=== PATIENT | female | born 1990 | race African-American/Black ===

== ENCOUNTER 2017-05-24 11:35 | Emergency (ER) | payer BC, MEDICAID ==
[2017-05-24 11:56] VITALS: BP 122/72
[2017-05-24] MEDS ORDERED: Acetaminophen TAB* 325 MG PO ONE (12:19)
[2017-05-24] MEDS ORDERED: Tetan/Diph/Pertus SYR(Tdap)* 0.5 ML SYR(BOOSTRIX) use SYR IM ONE (12:26)
--- NOTE | 2017-05-24 12:26 | UC ---
Laceration HPI - HPI Summary HPI Summary: This is an otherwise healthy 26 yo female who presented after sustaining a laceration to her R index finger ~ 45 min ago. She is unsure of her last tetanus. Reports moderate pain. No assoc numbness or tingling. - History Of Current Complaint Chief Complaint: UCLaceration Stated Complaint: RIGHT INDEX FINGER LACERATION - Allergies/Home Medications Allergies/Adverse Reactions: Allergies Allergy/AdvReac Type Severity Reaction Status Date / Time dairy Allergy Nausea And Uncoded 05/24/17 11:56 Vomiting Home Medications: Home Medications Omeprazole CAP* [Prilosec CAP* 20 MG] 20 mg PO DAILY 05/24/17 [History Confirmed 05/24/17] PMH/Surg Hx/FS Hx/Imm Hx Previously Healthy: Yes - Surgical History Surgical History: Yes Surgery Procedure, Year, and Place: nasal 2006 - Family History Known Family History: Positive: None - Social History Alcohol Use: Rare Substance Use Type: None Smoking Status (MU): Former Smoker Type: Cigarettes Amount Used/How Often: smoked a few cigarettes 2X/week Length of Time of Smoking/Using Tobacco: 2+ years - Immunization History Most Recent Tetanus Shot: unknown Review of Systems Constitutional: Negative Skin: Other - laceration Eyes: Negative ENT: Negative Respiratory: Negative Cardiovascular: Negative Gastrointestinal: Negative Genitourinary: Negative Motor: Negative Neurovascular: Negative Musculoskeletal: Negative Neurological: Negative Psychological: Negative All Other Systems Reviewed And Are Negative: Yes Physical Exam Triage Information Reviewed: Yes Appearance: Well-Appearing Vital Signs: Initial Vital Signs Temp 98.2 F 05/24/17 11:49 Pulse 67 05/24/17 11:49 Resp 14 05/24/17 11:49 BP 122/72 05/24/17 11:49 Pulse Ox 100 05/24/17 11:49 Vital Signs Reviewed: Yes Respiratory Exam: Normal Respiratory: Positive: Lungs clear, Normal breath sounds. Negative: Crackles, Rhonchi, Stridor Cardiovascular Exam: Normal Cardiovascular: Positive: RRR, No Murmur Skin: Positive: Other - laceration the radial portion of the L 2nd finger, large amount of bleeding Laceration Repair - Laceration Repair 1 Description: Irregular Laceration Size After Repair: Length (cm) - 2cm, Width (mm) - 10mm Contamination/FB Removal: Clean laceration Modified For Repair: Yes - distal flap of skin and nail removed Anesthesia Used: 2.0% Lido - digital block 3.5 ml used Cleansing Completed Via Routine Prep: Yes Irrigation With Pressure Irrigation Device: No Closure Material: Skin Adhesive - applied gelfoam for hemostasis, closure not performed Diagnostics - Laboratory Diagnostic Studies Completed/Ordered: XR hand - no bony involvement Re-Evaluation - Re-Evaluation First Eval Re-Evaluation Time: 13:00 Change: Improved Comment: reviewed results of XR Laceration Course/Dx - Course/Dx Course Of Treatment: This is an otherwise healthy 26 yo female who sustained a laceration to her distal R 2nd finger earlier today. XR shows no fracture. Defect was large and deep. Digital block performed for thorough exploration, she retained full strength. No visual evidence of tendon or bony involvement. No FB or debridement necessary. Hemostasis achieved with gelfoam and bulky dressing with finger cage. Referral made to orthopedic surgery for followup. Tdap given. - Differential Dx - Laceration/Wound Differental Diagnoses: Fracture, Laceration, Tendon Laceration Provider Diagnoses: 1. Laceration to R 2nd finger Discharge - Discharge Plan Condition: Stable Disposition: HOME Prescriptions: Bacitracin (Topical) [Hm Bacitracin] 1 top.soln TOPICAL DAILY #1 tube Ibuprofen TAB* [Motrin TAB* 600 MG] 600 mg PO Q6H PRN #30 tab PRN Reason: Pain Patient Education Materials: Finger Laceration (ED) Referrals: Yovany Hunt MD [Medical Doctor] - 7 Days No Primary Care Phys,NOPCP [Primary Care Provider] - Additional Instructions: Activity: Limit activity with R 1st finger Instructions: 1. Change dressing daily - lightly clean finger, apply bacitracin ointment and cover in dry gauze, use finger cage for protection 2. Call the office of Dr Hunt and request a follow up with a hand surgeon 3. Look for signs of infection including increased pain, redness, swelling, purulent drainage
--- NOTE | 2017-05-24 12:42 | RAD ---
HISTORY: Right index finger laceration COMPARISONS: None VIEWS: 2, Frontal and lateral views of the right hand FINDINGS: BONE DENSITY: Normal. BONES: There is no displaced fracture. JOINTS: There is no arthropathy. ALIGNMENT: There is no dislocation. SOFT TISSUES: There is soft tissue irregularity of the distal second digit consistent with the history of laceration OTHER FINDINGS: None. IMPRESSION: NO ACUTE OSSEOUS INJURY. IF SYMPTOMS PERSIST, RECOMMEND REPEAT IMAGING.
[2017-05-24] MEDS ORDERED: Gelfoam 12-7 ADSORBABL SPONGE* 1 EA SPONGE TOPICAL ONE (12:55)
[2017-05-24] MEDS ORDERED: Lidocaine 2% PF * 5 ML VIAL INJ ONE (12:57)
== END 2017-05-24 13:41 | disposition home or self-care (01) ==
LOC: UCCORT 11:35
DX: Z87.891 Personal history of nicotine dependence (principal); S61.210A Laceration without foreign body of right index finger without damage to nail, initial encounter; W45.8XXA Other foreign body or object entering through skin, initial encounter; Y93.9 Activity, unspecified; Y92.9 Unspecified place or not applicable; Y99.9 Unspecified external cause status
CPT/HCPCS: 90471; 90715; 99213; A9270-GY; G0463

== ENCOUNTER 2019-10-19 08:10 | Emergency (ER) | payer BC ==
[2019-10-19 09:17] LABS: ABS Basophils 0.1 10^3/ul (0-0.2); ABS Lymphocytes 1.6 10^3/ul (1.0-4.8); ABS Monocytes 0.3 10^3/ul (0-0.8); ABS Neutrophils 3.7 10^3/ul (1.5-7.7); Eosinophil % 0.7 %; Hematocrit 35 % (35-47); Hemoglobin 11.6 g/dL (12.0-16.0); Lymphocyte % 28.3 %; Mean Corpuscular HGB Conc 33 g/dL (31-36); Mean Corpuscular Hemoglobin 30 pg (27-31); Mean Corpuscular Volume 90 fL (80-97); Mean Platelet Volume 8.8 fL (7.4-10.4); Nucleated Red Blood Cells % 0.1; Platelet Count 196 10^3/uL (150-450); Red Blood Count 3.94 10^6 /uL (3.70-4.87); Red Cell Distribution Width 14 % (10-15); White Blood Count 5.8 10^3/uL (3.5-10.8)
[2019-10-19] MEDS ORDERED: Ketorolac INJ* 30 MG/ML 1 ML VIAL IM ONE (09:17)
--- NOTE | 2019-10-19 09:34 | ED ---
HPI Chest Pain - HPI Summary HPI Summary: 29 year old female presents with chest pain for the past month. States chest pain is intermittent. She feels like a tightness in her chest. Sometimes she has palpitations with such. She states she has had had pain all over. She admits to headache occasionally. Also admits to some neck and shoulder pain. Occasionally as leg pain. She also admits to a bowel pain when she eats something that she is sensitive to like milk which she had today. Denies any nausea or vomiting. No fevers. No recent illness. No cough. Has no medical conditions. She states that she is not able to sleep well because she works rn night. - History of Current Complaint Chief Complaint: EDChestWallPain Time Seen by Provider: 10/19/19 08:42 Hx Last Menstrual Period: 05/12/17 Pain Intensity: 7 - Allergy/Home Medications Allergies/Adverse Reactions: Allergies Allergy/AdvReac Type Severity Reaction Status Date / Time dairy Allergy Nausea And Uncoded 05/24/17 11:56 Vomiting PMH/Surg Hx/FS Hx/Imm Hx Endocrine/Hematology History: Denies: Hx Diabetes, Hx Thyroid Disease Cardiovascular History: Denies: Hx Hypertension Respiratory History: Denies: Hx Asthma, Hx Chronic Obstructive Pulmonary Disease (COPD) GI History: Denies: Hx Ulcer - Surgical History Surgery Procedure, Year, and Place: 2006 Infectious Disease History: No Infectious Disease History: Denies: Hx Clostridium Difficile, Hx Hepatitis, Hx Human Immunodeficiency Virus (HIV), Hx of Known/Suspected MRSA, Hx Shingles, Hx Tuberculosis, Hx Known/ Suspected VRE, Hx Known/Suspected VRSA, History Other Infectious Disease, Traveled Outside the in Last 30 Days - Family History Known Family History: Positive: None - Social History Alcohol Use: Rare Substance Use Type: Reports: None Smoking Status (MU): Former Smoker Type: Cigarettes Amount Used/How Often: smoked a few cigarettes 2X/week Length of Time of Smoking/Using Tobacco: 2+ years Review of Systems Negative: Fever Positive: Palpitations, Chest Pain Negative: Shortness Of Breath, Cough Positive: Myalgia - neck pain and shoulder pain Positive: Headache All Other Systems Reviewed And Are Negative: Yes Physical Exam Triage Information Reviewed: Yes Vital Signs On Initial Exam: Initial Vitals Temp Pulse Resp BP Pulse Ox 98.5 F 62 16 125/70 100 10/19/19 08:24 10/19/19 08:24 10/19/19 08:24 10/19/19 08:24 10/19/19 08:24 Vital Signs Reviewed: Yes Appearance: Positive: Well-Appearing Skin: Positive: Warm, Dry Head/Face: Positive: Normal Head/Face Inspection Eyes: Positive: Normal, EOMI, HARSH, Conjunctiva Clear ENT: Positive: Normal ENT inspection, Pharynx normal, TMs normal Respiratory/Lung Sounds: Positive: Clear to Auscultation, Breath Sounds Present , Other - reproducible chest pain, Cardiovascular: Positive: Normal, RRR Abdomen Description: Positive: Nontender, Soft Bowel Sounds: Positive: Present Musculoskeletal: Positive: Normal, Strength/ROM Intact - neck and shoulder, Other - no midline tenderness, tenderness over sides of neck Neurological: Positive: Sensory/Motor Intact, Alert, Oriented to Person Place, Time, CN Intact II-III Psychiatric: Positive: Normal Procedures - Sedation Patient Received Moderate/Deep Sedation with Procedure: No Diagnostics - Vital Signs Vital Signs Temp Pulse Resp BP Pulse Ox 10/19/19 08:25 98.2 F 60 16 119/70 100 10/19/19 08:24 98.5 F 62 16 125/70 100 - Laboratory Lab Results: Lab Results 10/19/19 Range/Units 09:06 WBC 5.8 (3.5-10.8) 10^3/uL RBC 3.94 (3.70-4.87) 10^6 /uL Hgb 11.6 L (12.0-16.0) g/dL Hct 35 (35-47) % MCV 90 (80-97) fL MCH 30 (27-31) pg MCHC 33 (31-36) g/dL RDW 14 (10-15) % Plt Count 196 (150-450) 10^3/uL MPV 8.8 (7.4-10.4) fL Neut % (Auto) 64.2 % Lymph % (Auto) 28.3 % [place] % (Auto) 5.9 % Eos % (Auto) 0.7 % Baso % (Auto) 0.9 % Absolute Neuts (auto) 3.7 (1.5-7.7) 10^3/ul Absolute Lymphs (auto) 1.6 (1.0-4.8) 10^3/ul Absolute Monos (auto) 0.3 (0-0.8) 10^3/ul Absolute Eos (auto) 0.0 (0-0.6) 10^3/ul Absolute Basos (auto) 0.1 (0-0.2) 10^3/ul Absolute Nucleated RBC 0.0 10^3/ul Nucleated RBC % 0.1 Result Diagrams: 10/19/19 09:06 10/19/19 09:06 Lab Statement: Any lab studies that have been ordered have been reviewed, and results considered in the medical decision making process. - Radiology chest Radiology Interpretation Completed By: Radiologist Summary of Radiographic Findings: IMPRESSION: No active cardiopulmonary disease is noted. - EKG No standard instances Cardiac Rate: NL EKG Rhythm: Sinus Rhythm Summary of EKG Findings: sinus rhythm Re-Evaluation - Re-Evaluation First Eval Re-Evaluation Time: 10:48 Change: Improved Comment: feeling better, is tired Chest Pain Course/Dx - Course Course Of Treatment: 29 year old female presents with chest pain for the past month. States chest pain is intermittent. She feels like a tightness in her chest. Sometimes she has palpitations with such. She states she has had had pain all over. She admits to headache occasionally. Also admits to some neck and shoulder pain. Occasionally as leg pain. She also admits to a bowel pain when she eats something that she is sensitive to like milk which she had today. Denies any nausea or vomiting. No fevers. No recent illness. No cough. Has no medical conditions. She states that she is not able to sleep well because she works rn night. On exam lungs clear to auscultation. Heart regular rhythm. Has reproduced with chest pain. Tenderness of her neck. Normal neuro exam. EKG shows a sinus rhythm. wbc normal. troponin zero. d- dimer neg. gave toradol and feeling better. will treat with flexeril as likely muscular pain once a day. told continue ibuprofen. patient understand and agrees with plan. - Chest Pain Differential Diagnosis/HQI/PQRI: Chest Wall, Lower Respiratory Infection, Pulmonary Embolism - Diagnoses Provider Diagnoses: Chest wall pain, Neck pain Discharge ED - Sign-Out/Discharge Documenting (check all that apply): Patient Departure - Discharge Plan Condition: Good Disposition: HOME Prescriptions: Cyclobenzaprine TAB* [Flexeril 10 MG TAB*] 10 mg PO DAILY #7 tab Patient Education Materials: Chest Wall Pain (ED) Referrals: Shweta Garcia MD [Primary Care Provider] - Additional Instructions: take tyenlol or ibuprofen every 6 hours for pain Try muscle relaxer once a day before going to bed Follow up with primary within 5 days Return to ED if develop any new or worsening symptoms - Billing Disposition and Condition Condition: GOOD Disposition: Home
[2019-10-19 09:41] LABS: ALT 26 U/L (7-52); AST 33 U/L (13-39); Albumin 4.3 g/dL (3.2-5.2); Albumin/Globulin Ratio 1.4 (1-3); Alkaline Phosphatase 60 U/L (34-104); Anion Gap 5 mmol/L (2-11); BUN/Creatinine Ratio 8.5 (8-20); Blood Urea Nitrogen 8 mg/dL (6-24); C Reactive Protein < 1.00 mg/L (<8.01); CO2 Carbon Dioxide 26 mmol/L (22-32); Calcium 9.5 mg/dL (8.6-10.3); Chloride 108 mmol/L (101-111); EGFR African American 86.4 (>60); EGFR Non-African American 71.4 (>60); Glucose 92 mg/dL (70-100); Potassium 4.1 mmol/L (3.5-5.0); Sodium 139 mmol/L (135-145); Total Protein 7.3 g/dL (6.4-8.9)
[2019-10-19 09:42] LABS: HCG Pregnancy < 0.60 mIU/mL
[2019-10-19 13:43] VITALS: BP 107/80
== END 2019-10-19 13:41 | disposition home or self-care (01) ==
LOC: ED 08:10
DX: R07.89 Other chest pain (principal); M54.2 Cervicalgia; Z87.891 Personal history of nicotine dependence
CPT/HCPCS: 36415; 71046; 80053; 83605; 84484; 84702; 85025; 85379; 86140; 93005; 96372; 99283; J1885